=== PATIENT | male | born 1955 | race Caucasian/White ===

== ENCOUNTER → 2017-03-16 | Outpatient (CLI) | payer OTHER ==
--- NOTE | 2017-03-16 16:27 | PCVCIMAG ---
APPROVED REPORT Patient Location: Echo lab-[facility] Room #: Stress Nurse: Twyla Rodríguez RN INDICATIONS: Chest tightness and tingling in the fingers HISTORY: CAD, S/P Stent The patient exercised according to the Donovan Protocol for 10:16 minutes, achieving a maximum work level of 13.4 METS. The resting heart rate of 85 bpm, rebecca to a maximal level of 157 bpm. This value represents 100% of the maximal, age-predicted heart rate. The resting blood pressure of 172/82 mmHg, rebecca to a maximum blood pressure of 210/90 mmHg. The exercise was stopped due to dyspnea and fatigue. Conclusion 1. Maximal treadmill stress negative for ischemia 2. This study was associated with good exercise capacity (13.4 METS)
== END | disposition home or self-care (01) ==
LOC: PCVCIMAG 13:12
PROVIDERS: ATTEND Internal Medicine
DX: I25.10 Atherosclerotic heart disease of native coronary artery without angina pectoris (principal); I71.4 Abdominal aortic aneurysm, without rupture; I10 Essential (primary) hypertension; Z95.5 Presence of coronary angioplasty implant and graft
CPT/HCPCS: 93017

== ENCOUNTER → 2017-03-22 | Outpatient (CLI) | payer OTHER ==
--- NOTE | 2017-03-22 10:56 | PCVCIMAG ---
EXAM: AORTOILIAC DUPLEX INDICATION: Peripheral arterial disease FINDINGS: AORTA: Suprarenal aorta measures maximum diameter of 2.8 cm. There is not a fusiform infrarenal aortic aneurysm. The infrarenal aorta measures maximum diameter of 2.6 cm. No aortic stenosis. RIGHT COMMON ILIAC ARTERY: Maximum diameter is 1.0 cm. No significant stenosis. RIGHT EXTERNAL ILIAC ARTERY: No significant stenosis. LEFT COMMON ILIAC ARTERY: Maximum diameter is 1.0 cm. No significant stenosis. LEFT EXTERNAL ILIAC ARTERY: No significant stenosis. IMPRESSION: No abdominal aortic aneurysm. No aortoiliac stenosis seen. Mild ectasia infrarenal abdominal aorta. LOC:[id number]
== END | disposition home or self-care (01) ==
LOC: PCVCIMAG 07:55
PROVIDERS: ATTEND Internal Medicine
DX: I77.811 Abdominal aortic ectasia (principal); I73.9 Peripheral vascular disease, unspecified
CPT/HCPCS: 93978

== ENCOUNTER → 2018-11-04 | Outpatient (CLI) | payer MEDICARE ==
--- NOTE | 2018-11-04 11:56 | PCVCIMAG ---
EXAM: AORTOILIAC DUPLEX INDICATION: Abdominal aortic aneurysm with previous open surgical repair. FINDINGS: AORTA: Suprarenal aorta measures maximum diameter of 3.0 cm. There is not a fusiform infrarenal aortic aneurysm. The infrarenal aorta measures maximum diameter of 2.7 cm. No aortic stenosis. RIGHT COMMON ILIAC ARTERY: Maximum diameter is 1.4 cm. No significant stenosis. RIGHT EXTERNAL ILIAC ARTERY: No significant stenosis. LEFT COMMON ILIAC ARTERY: Maximum diameter is 1.4 cm. No significant stenosis. LEFT EXTERNAL ILIAC ARTERY: No significant stenosis. IMPRESSION: No abdominal aortic aneurysm. No aortoiliac stenosis seen. By report there has been previous open surgical repair of a previous abdominal aortic aneurysm. LOC:[id number]
--- NOTE | 2018-11-04 13:08 | PCVCIMAG ---
APPROVED REPORT Indications Stenosis History of Smoking Doppler Spectral Velocity Analysis PSV / EDVPSV / EDV ECA (R) 87 / 17 cm/sECA (L) 221 / 40 cm/s dICA (R) 46 / 18 cm/sdICA (L) 59 / 21 cm/s Danny (R) 57 / 23 cm/smICA (L) 68 / 25 cm/s pICA (R) 55 / 18 cm/spICA (L) 53 / 21 cm/s Bulb (R) 67 / 16 cm/sBulb (L) 49 / 16 cm/s dCCA (R) 81 / 22 cm/sdCCA (L) 60 / 18 cm/s mCCA (R) 83 / 19 cm/smCCA (L) 72 / 20 cm/s Vert (R) 56 / 18 cm/sVert (L) 50 / 12 cm/s ICA/CCA 0.70ICA/CCA 1.13 Basic Measurements Blood Pressure: Pulses: Right Left RightLeft Brachial(Sitting) 146/34pdZv792/90mmHgTemporal Real Time B-Mode Imaging Vert. (R)AntegradeVert. (L)Antegrade Findings The right carotid bulb has moderate calcified plaque. The right proximal internal carotid artery shows <40% stenosis. The right common carotid artery shows no significant stenosis. The right external carotid artery shows no significant stenosis. The left carotid bulb has moderate calcified plaque. The left proximal internal carotid artery shows <40% stenosis. The left common carotid artery shows no significant stenosis. The left external carotid artery shows >50% stenosis. Conclusion 1. Right internal carotid artery stenosis (<40%) 2. Left internal carotid artery stenosis (<40%) 3. Antegrade vertebral flow
== END | disposition home or self-care (01) ==
LOC: PCVCIMAG 10:17
PROVIDERS: ATTEND Internal Medicine
DX: I65.23 Occlusion and stenosis of bilateral carotid arteries (principal); I25.10 Atherosclerotic heart disease of native coronary artery without angina pectoris; I71.4 Abdominal aortic aneurysm, without rupture; E78.5 Hyperlipidemia, unspecified; Z87.891 Personal history of nicotine dependence
CPT/HCPCS: 93005; 93880; 93978; G0463